=== PATIENT | female | born 1955 | race Asian ===

== ENCOUNTER 2016-12-14 15:15 | Emergency (ER) | payer OTHER ==
[2016-12-14 15:21] VITALS: PULSE 56; TEMP 97.9; BMI 21.4
[2016-12-14] MEDS ORDERED: IBUPROFEN 600 MG TABLET (FP) PO ONE ×2 (15:44→15:48)
--- NOTE | 2016-12-14 16:20 | PDOC ---
History of Present Illness - General Chief Complaint: Pain, Acute Stated Complaint: LEFT ANKLE PAIN Time Seen by Provider: 12/14/16 15:21 History Source: Patient Exam Limitations: No Limitations - History of Present Illness Initial Comments: 12/14/16 16:15 61yo F no pmhx here s/p left ankle injury. pt was walking, and tripped, rolled ankle. unable to walk since injury. no knee or hip pain. fell. happened one hour prior to arrival. no numbness or weaknes. did not hit head. no neck or back pain. does have associated swelling and some eccymosis. . pain severe, worse with movement. no prior ankle injury or ankle surgery. Past History - Past Medical History Allergies/Adverse Reactions: Allergies Allergy/AdvReac Type Severity Reaction Status Date / Time No Known Allergies Allergy Verified 12/14/16 15:17 Home Medications: Ambulatory Orders Ibuprofen 600 mg PO TID PRN #30 tablet MDD 3 12/14/16 Oxycodone HCl/Acetaminophen [Percocet 5-325 mg Tablet] 1 tab PO Q6H PRN #15 tablet MDD 4 12/14/16 Other medical history: DENIES - Psycho/Social/Smoking Cessation Hx Anxiety: No Suicidal Ideation: No Smoking History: Never smoked Hx Alcohol Use: No Drug/Substance Use Hx: No Substance Use Type: None Review of Systems - Review of Systems Constitutional: No: Chills, Diaphoresis HEENTM: No: Eye Pain Respiratory: No: Cough Cardiac (ROS): No: Chest Pain ABD/GI: No: Abdominal Distended : No: Burning, Dysuria Musculoskeletal: Yes: Joint Pain Integumentary: No: Bruising Neurological: No: Headache All Other Systems: Reviewed and Negative *Physical Exam - Vital Signs Last Vital Signs Temp Pulse Resp BP Pulse Ox 97.9 F 56 L 18 143/79 100 12/14/16 15:16 12/14/16 15:16 12/14/16 15:16 12/14/16 15:16 12/14/16 15:16 - Physical Exam General Appearance: Yes: Appropriately Dressed Respiratory/Chest: positive: Lungs Clear, Normal Breath Sounds. negative: Chest Tender Cardiovascular: positive: Regular Rhythm, Regular Rate, S1, S2. negative: Edema Vascular Pulses: Dorsalis-Pedis (R): 2+, Doralis-Pedis (L): 2+ Gastrointestinal/Abdominal: positive: Normal Bowel Sounds, Flat, Soft. negative : Tender Musculoskeletal: positive: Normal Inspection. negative: Vertebral Tenderness Extremity: positive: Normal Capillary Refill, Normal Inspection, Other (left ankle with med and lat mall ttp. swelling. decr rom due to pain. foot nt, from . distally n/v intact. knee / hip NT FROM. prox fibula NT.) Integumentary: positive: Normal Color, Dry, Warm Neurologic: positive: Fully Oriented, Alert, Normal Mood/Affect Procedures - Splinting Splint Location: Left: Ankle Pre-Proc Neuro Vasc Exam: normal Hand-Made Type: orthoglass Splint Type: Yes: Sugar Tong, Posterior, Short Leg Post-Proc Neuro Vasc Exam: normal Darnell Bandage: yes Sling: No Complications: No Post splint xray: Yes Good repositioning: Yes - Joint Reduction Left Conscious Sedation: No Reduction Attempts: 1 Anesthetic: 2% Lidocaine Procedure: Traction Counter Traction Post-Procedure NV Exam: normal Complications: No (fracture dislocation/ reduction. splint ) ED Treatment Course - RADIOLOGY Radiology Studies Ordered: Category Date Time Status ANKLE-LEFT [RAD] Stat Radiology 12/14/16 15:44 Taken KNEE 2 POS-LEFT [RAD] Stat Radiology 12/14/16 16:13 Ordered - Medications Given in the ED: ED Medications Discontinued Medications Generic Name Dose Route Start Last Admin Trade Name Freq PRN Reason Stop Dose Admin Ibuprofen 600 mg 12/14/16 15:44 12/14/16 15:51 Motrin - PO 12/14/16 15:45 600 mg ONCE ONE Administration Medical Decision Making - Medical Decision Making 12/14/16 16:18 61 yo F s/p trip and fall with left ankle xray, likley fractured based on exam. knee NT. plan xray ankle knee, pain control. ortho consult as needed. 12/14/16 16:19 xray with trimall fracture left ankle. paged. dr mckee. 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 pt fx hematoma block performed, reduced with morphine, nv intact following posterior short leg splint with stirrups . pt tolerated well. post reduction films with good reduction. d/w dr. mckee . will see pt in office this week. told to ice elevate. percocet for pain. and motrin. 600. *DC/Admit/Observation/Transfer Diagnosis at time of Disposition: Trimalleolar fracture of left ankle - Discharge Dispostion Disposition: HOME Condition at time of disposition: Improved Admit: No - Prescriptions Prescriptions: Oxycodone HCl/Acetaminophen [Percocet 5-325 mg Tablet] 1 tab PO Q6H PRN #15 tablet MDD 4 PRN Reason: Pain - Patient Instructions Printed Discharge Instructions: Ankle Fracture Additional Instructions: elevate leg to reduce swelling. you will follow up with DR Mckee tomorrow morning at 9 AM here at [facility]. you can take ibuprofen 600 mg every 8 hours as needed for pain. take percocet one every 6 hours as needed for pain not responding to motrin 600 mg . return for any numbness, severe pain or any concerns. use crutches, and do not put any weight on your left ankle.
[2016-12-14] MEDS ORDERED: LIDOCAINE HCL 2% (20ML MULTI-DOSE VIAL) NR ONE (16:52)
[2016-12-14] MEDS ORDERED: morphine CARPU-JECT 4 MG/1 ML DISP.SYRIN IVPUSH ONE (17:03)
[2016-12-14] MEDS ORDERED: morphine CARPU-JECT 4 MG/1 ML DISP.SYRIN ONE (17:03)
[2016-12-14] MEDS ORDERED: SODIUM CHLORIDE 0.9% 1000 ML INFUS.BAG IV ONE (18:40)
[2016-12-14 19:34] VITALS: BP 155/93
== END 2016-12-14 19:39 | disposition home or self-care (01) ==
LOC: FER 15:15
PROC: 0SSGXZZ Reposition Left Ankle Joint, External Approach (ICD-10-PCS; principal; 2016-12-14)
PROC: 3E033NZ Introduction of Analgesics, Hypnotics, Sedatives into Peripheral Vein, Percutaneous Approach (ICD-10-PCS; 2016-12-14)
PROC: 3E0337Z Introduction of Electrolytic and Water Balance Substance into Peripheral Vein, Percutaneous Approach (ICD-10-PCS; 2016-12-14)
DX: S82.852A Displaced trimalleolar fracture of left lower leg, initial encounter for closed fracture (principal); X58.XXXA Exposure to other specified factors, initial encounter; Y93.9 Activity, unspecified; Y92.9 Unspecified place or not applicable
CPT/HCPCS: 73560-TC-LT; 73610-TC-LT; 99282-25

== ENCOUNTER 2016-12-24 06:17 | Day surgery (SDC) | payer OTHER ==
[2016-12-19 17:37] VITALS: BMI 21.4
[2016-12-24] MEDS ORDERED: MIDAZOLAM HCL 2 MG/2 ML SINGLE DOSE VIAL ONE (07:30)
[2016-12-24] MEDS ORDERED: ROPIVACAINE HCL 0.5% 30ML VIAL ONE ×2 (07:30→07:47)
[2016-12-24] MEDS ORDERED: LIDOCAINE HCL/PF 2% SDV 5ML VIAL ONE (08:14)
[2016-12-24] MEDS ORDERED: PROPOFOL 20 ML ONE (08:14)
[2016-12-24] MEDS ORDERED: SODIUM CHLORIDE 0.9% P/F 10 ML VIAL IJ ONE (08:22)
[2016-12-24] MEDS ORDERED: ONDANSETRON 4 MG/2 ML VIAL ONE (08:25)
[2016-12-24] MEDS ORDERED: DEXAMETHASONE SOD PHOSPHATE 4 MG/1 ML VIAL ONE (08:25)
[2016-12-24] MEDS ORDERED: KETOROLAC TROMETHAMINE 30 MG/1 ML VIAL ONE (09:36)
[2016-12-24] MEDS ORDERED: BACITRACIN 15 GM TUBE TOPICAL OINTMENT ONE (10:08)
[2016-12-24] MEDS ORDERED: BACITRACIN 15 GM TUBE TOPICAL OINTMENT TP ONE (10:15)
[2016-12-24] MEDS ORDERED: PROMETHAZINE HCL 25 MG/1 ML VIAL IVPUSH PRN (10:46)
[2016-12-24] MEDS ORDERED: ONDANSETRON 4 MG/2 ML VIAL IVPUSH PRN (10:46)
[2016-12-24] MEDS ORDERED: LACTATED RINGERS SOLUTION 1,000 ML IV SCH (11:00)
[2016-12-24 13:38] VITALS: TEMP 97.7
[2016-12-24 14:17] VITALS: BP 105/67; PULSE 67
--- NOTE | 2016-12-24 19:03 | OP ---
DATE OF OPERATION: 12/24/2016 PREOPERATIVE DIAGNOSIS: Left trimalleolar ankle fracture. POSTOPERATIVE DIAGNOSIS: Left trimalleolar ankle fracture. PROCEDURE: Left ankle open reduction internal fixation of medial and lateral malleoli. SURGEON: Jeff Mckee MD DEPUTY CLERK OF SUPERIOR COURT: EDER Long, whose skillful assistance was necessary for the safe and timely performance of this procedure. ANESTHESIA: Regional plus general. POSTOPERATIVE CONDITION: Stable. COMPLICATIONS: None. TOURNIQUET TIME: An hour and a half. INDICATIONS: This is a pleasant woman who had suffered a twisting injury to the ankle. She was found to have a displaced trimalleolar ankle fracture. Treatment options including nonoperative care with malunion and post-traumatic arthrosis were discussed. Operative treatment was recommended in order to restore the anatomy of the ankle and help to prevent post-traumatic arthrosis. I reviewed surgical risks in detail including bleeding, infection, neurovascular injury, the need for further surgery, postoperative pain and stiffness, nonunion, malunion, hardware cutout or failure. We discussed medical risks such as heart attack, stroke, DVT, PE, and . We discussed the postoperative rehabilitation protocol. We discussed the use of perioperative DVT and antibiotic prophylaxis. I addressed all the patients questions. She voiced understanding and elected to proceed. DESCRIPTION OF PROCEDURE: The patient was brought to the operating room after administration of a regional block in the preoperative holding area. The left lower extremity was then prepped and draped in the usual sterile fashion. A preoperative dose of antibiotics was given and the usual time-out procedure was performed. The ankle was examined preoperatively and just as was seen in the office, there were some resolving fracture blisters. However, these were not along the incision line and were healing well. The incision was now planned out over the distal fibula. The limb was then exsanguinated and a tourniquet was inflated to 250 mmHg. An incision was then carried down full thickness over the distal 5 cm of the fibula and then more superficial proximally. Blunt spreading was used proximally to expose the fracture site. The fracture was noted to be moderately comminuted. The fracture was then irrigated to remove any loose debris. At this point, fracture reduction forceps were used to obtain an anatomic reduction of the most proximal fragment. A 2.7 screw was then drilled and inserted to stabilize the more proximal posterior fragment. The most distal fragment was now reduced to the just fixed proximal one and this was held in place with two 2-0 K-wires. The plate was now chosen to span the fracture site and was affixed to the side of the bone. This was initially done utilizing a 3.5 cortical screw into the proximal shaft. At this time, both fracture reduction and hardware placement were verified both visually and fluoroscopically. Both were satisfactory. Utilizing distal locking holes, the remainder of the holes were drilled and filled with screws of appropriate length. The remainder of the 3.5-mm shaft holes were then drilled and inserted as well. Attention was now turned to the medial malleolus. Here, while the reduction was not terrible, there was definitely gapping of the fracture site and it was decided to perform an open reduction. An incision was planned out linearly in line with the limb over the fracture site, which was palpable. The incision was carried down through skin and subcutaneous tissue. Blunt spreading was used to expose the periosteum which was already ruptured as a result of the fracture. Any loose periosteum was removed from the fracture site. The fractured fragment was now reduced and held in place with two K-wires from the 4.0 cannulated screw set. Fracture reduction and hardware placement were verified fluoroscopically. Both wires were then overdrilled with a 4.0 drill bit. Two 40-mm 4.0 cancellous screws were then inserted over the K-wires, compressing down along the fracture site. The K-wires were removed. At this point, the entire construct was examined both visually and fluoroscopically. Both fracture reduction and hardware placement were satisfactory. Under live fluoroscopy, an external rotation stress test was performed. This demonstrated no instability of the syndesmosis. The wound at this point was copiously irrigated. The deep tissue was approximated using 0 Vicryl. The subcutaneous tissue was approximated using 0 Vicryl. The skin was closed using interrupted mattress 4-0 nylon. Sterile dressings were placed. It should be noted that the tourniquet was let down prior to closure. Electrocautery was used to maintain hemostasis. The patient was then placed into a well-padded short-leg cast. She was extubated and transferred to the recovery room in stable condition. Mitchell HAMMOND/[id number] MTDD
== END 2016-12-24 14:44 | disposition home or self-care (01) ==
LOC: FASU 06:17
PROVIDERS: ATTEND Orthopaedic Surgery Sports Medicine
PROC: 0QSK04Z Reposition Left Fibula with Internal Fixation Device, Open Approach (ICD-10-PCS; 2016-12-24)
PROC: 0QSH04Z Reposition Left Tibia with Internal Fixation Device, Open Approach (ICD-10-PCS; 2016-12-24)
PROC: 0QSH04Z Reposition Left Tibia with Internal Fixation Device, Open Approach (ICD-10-PCS; principal; 2016-12-24 08:10)
DX: S82.852A Displaced trimalleolar fracture of left lower leg, initial encounter for closed fracture (principal); X50.0XXA Overexertion from strenuous movement or load, initial encounter; Y93.01 Activity, walking, marching and hiking; Y92.9 Unspecified place or not applicable
CPT/HCPCS: 73610-TC-LT; 76001-TC; 94760